=== PATIENT | male | born 1970 | race Caucasian/White ===

== ENCOUNTER 2024-02-21 18:54 | Emergency (ER) | payer OTHER ==
[2024-02-21 20:31] LABS: B. PARAPERTUSSIS- RESP PCR PAN NOT DETECTED; B. PERTUSSIS- RESP PCR PANEL NOT DETECTED; C. PNEUMONIAE- RESP PCR PANEL NOT DETECTED; CORONAVIRUS 229E-RESP PCR NOT DETECTED; CORONAVIRUS HKU1-RESP PCR NOT DETECTED; CORONAVIRUS NL63-RESP PCR NOT DETECTED; CORONAVIRUS OC43-RESP PCR NOT DETECTED; HUMAN METAPNEUMOVIRUS NOT DETECTED; INFLUENZA A- RESP PCR PANEL NOT DETECTED; INFLUENZA B - RESP PCR PANEL NOT DETECTED; M. PNEUMONIAE- RESP PCR PANEL NOT DETECTED; PARAINFLUENZA VIRUS 1 NOT DETECTED; PARAINFLUENZA VIRUS 2 NOT DETECTED; PARAINFLUENZA VIRUS 3 NOT DETECTED; PARAINFLUENZA VIRUS 4 NOT DETECTED; RHINOVIRUS/ENTEROVIRUS NOT DETECTED; RSV- RESP PCR PANEL NOT DETECTED; SARS-CoV-2 -RESP PCR PANEL NOT DETECTED
--- NOTE | 2024-02-21 21:39 | ED Physician Documentation ---
History of Present Illness - Stated complaint Stated Complaint: SOA/FEVER/COUGH - Chief complaint Chief Complaint: Resp - Additonal information Additional information: Patient is a 53-year-old male presenting to the emergency department with cough sore throat congestion body aches highest temperature of 99.2 at home from Wednesday to now. Patient comes in with shortness of breath walking up stairs and generalized fatigue. Patient presents with his who symptoms started on as well. Patient has been taking Mucinex and cough drops for his symptoms with mild relief. PD PAST MEDICAL HISTORY - Past Medical History Past Medical History: Yes Cardiovascular: Hypertension Psych: Depression, Anxiety - Past Surgical History Past Surgical History: No - Present Medications Home Medications: Ambulatory Orders Medication Instructions Recorded Confirmed Albuterol Sulf [Ventolin Hfa 1 - 2 puffs INH Q4HR PRN #1 each 02/21/24 Inhaler] Benzonatate [Tessalon] 100 mg PO TID #30 cap 02/21/24 - Allergies Allergies/Adverse Reactions: Allergies Allergy/AdvReac Type Severity Reaction Status Date / Time ampicillin Allergy Hives Verified 02/21/24 19:02 - Social History Does the pt smoke?: No Smoking Status: Never smoker Does the pt drink ETOH?: No Does the pt have substance abuse?: No - Immunizations Immunizations are current?: Yes - POLST Patient has POLST: No PD ED PE NORMAL - Vitals Vital signs reviewed: Yes - General General: Alert and oriented X 3 - HEENT HEENT: Atraumatic - Neck Neck: Supple, no meningeal sign, No adenopathy - Cardiac Cardiac: RRR, No murmur, No gallop, No rub - Respiratory Respiratory: No respiratory distress, Clear bilaterally, Other (No rhonchi wheezes or rales on auscultation) - Abdomen Abdomen: Normal bowel sounds - Derm Derm: Normal color, Warm and dry, No rash - Neuro Neuro: Alert and oriented X 3 Eye Opening: Spontaneous Motor: Obeys Commands Verbal: Oriented GCS Score: 15 Results - Vitals Vitals: Oxygen O2 Source Room air - Labs Labs: Laboratory Tests 02/21/24 19:07 Nasal Adenovirus (PCR) NOT DETECTED Nasal B. parapertussis DNA (PCR) NOT DETECTED Nasal Coronavir 229E PCR NOT DETECTED Nasal Coronavir HKU1 PCR NOT DETECTED Nasal Coronavir NL63 PCR NOT DETECTED Nasal Coronavir OC43 PCR NOT DETECTED Nasal Enterovir/Rhinovir PCR NOT DETECTED Nasal Influenza B PCR NOT DETECTED Nasal Influenza A PCR NOT DETECTED Nasal Parainfluen 1 PCR NOT DETECTED Nasal Parainfluen 2 PCR NOT DETECTED Nasal Parainfluen 3 PCR NOT DETECTED Nasal Parainfluen 4 PCR NOT DETECTED Nasal RSV (PCR) NOT DETECTED Nasal B.pertussis DNA PCR NOT DETECTED Nasal C.pneumoniae (PCR) NOT DETECTED Henry Human Metapneumo PCR NOT DETECTED Nasal M.pneumoniae (PCR) NOT DETECTED Nasal SARS-CoV-2 (PCR) NOT DETECTED PD Medical Decision Making - ED course Complexity details: reviewed results, re-evaluated patient ED course: Patient is a 53-year-old male presenting to the emergency department with his for similar symptoms he has had no significant fevers highest temperature of 99.2 at home. He has had bodyaches cough congestion sore throat. Patient came in as he was feeling short of breath when going up stairs. On arrival patient saturating well no tachycardia afebrile clear breath sounds on auscultation and patient is speaking in full sentences no signs of respiratory distress. Patient does have past medical history of hypertension but no other significant past medical history. Patient has been taking emergency Mucinex Advil and cough drops for symptoms at home. Patient given breathing treatment here in the emergency department for symptoms and afterwards feeling significantly better and cough and shortness of breath have resolved. Patient tested negative on respiratory panel. Given clear breath sounds on auscultation low suspicion for any signs of pneumonia as he is afebrile nontachycardic here as well. Patient will be discharged with Mucinex and Tessalon Perles and an inhaler to help with her symptoms. Instructed patient she should follow-up with her PCP in the outpatient setting. Patient instructed to drink lots of fluids and to return with any persistent fevers difficulty breathing leg swelling chest pain dizziness lightheadedness or any other new or worsening symptoms. Patient understands and is agreeable with this plan. Departure - Departure Disposition: 01 Home, Self Care Clinical Impression: Viral URI with cough Condition: Good Instructions: ED Viral Syndrome Prescriptions: Albuterol Sulf [Ventolin Hfa Inhaler] 1 - 2 puffs INH Q4HR PRN #1 each PRN Reason: Shortness Of Air/Wheezing Benzonatate [Tessalon] 100 mg PO TID #30 cap Comments: You were seen here in the emergency department with your URI which is a upper respiratory tract infection. Started you on medications to help with your sym ptoms. You should drink lots of fluids at home. Your viral respiratory panel was negative here. If you develop any severe productive cough fevers over 103 at home or chest pain or shortness of breath you should return to the emergency department. Please take medications at home along with the medications you are already taking to help with your symptoms. You should rest and take Tylenol and ibuprofen on top of your medications to help with your symptoms. Forms: PCP List Discharge Date/Time: 02/21/24 22:06
[2024-02-21] MEDS: IPRATROPIUM/ALBUTEROL 3 ML NEB INH STA (21:57)
[2024-02-21 22:11] VITALS: BP 133/74; O2SAT 98
== END 2024-02-21 22:06 | disposition home or self-care (01) ==
LOC: ED 18:54
DX: J06.9 Acute upper respiratory infection, unspecified (principal)
CPT/HCPCS: 87633; 94640; 94664; 99283